=== PATIENT | female | born 1995 | race Caucasian/White ===

== ENCOUNTER 2017-02-05 17:27 | Emergency (ER) | payer MEDICAID ==
[~2017-02-05] VITALS: Ht 170.2 cm; Wt 81.6 kg
[~2017-02-05 17:27] MED LIST: RISP1TAB51 PO
[2017-02-05 17:32] VITALS: BP_SYST 128
--- NOTE | 2017-02-05 17:36 | NUR ---
Pt placed to ER bed 04 and to gown.
--- NOTE | 2017-02-05 17:40 | NUR ---
Patient brought in self for right knee pain. she states, "I shattered my knee 5 months ago.I was seated then fell on my right knee."Patient presents as Alert x 1, name only, engages to mortgage or loan underwriter with no eye contact, observed patient ambulatory, no deformity, swelling, discoloration noted. She is able to place her full weight on right knee, ambulates with no complaint of pain. Patient observed bending, putting on her shoes during assessment. No other complaints/injuries per patient, none noted.
--- NOTE | 2017-02-05 18:00 | NUR ---
Dr. Mclaughlin at bedside examining patient, updated on patient condition.
--- NOTE | 2017-02-05 18:05 | NUR ---
Observed patient laughing to self inappropriately, continues to engage with typewriter aligner using no eye contact. Patient acts bizarre, observed ambulating by bedside with no limp or signs of pain to right knee.
--- NOTE | 2017-02-05 18:21 | NUR ---
Patient off unit to radiology.
--- NOTE | 2017-02-05 18:28 | NUR ---
Patient returned from radiology, tolerated well. No signs of distress, vss noted.
[2017-02-05 18:40] VITALS: BP_SYST 128
--- NOTE | 2017-02-05 18:40 | NUR ---
Patient given written and verbal discharge instructions and verbalizes understanding. ER MD discussed with patient the results and treatment provided. Patient in stable condition. ID arm band removed. Rx of Motrin given. Patient educated on pain management and to follow up with PMD. Pain Scale 0/10. Opportunity for questions provided and answered. Patient transferred off unit by wheel chair for safety.
== END 2017-02-05 18:40 | disposition home or self-care (01) ==
LOC: SED 17:27
DX: G89.29 Other chronic pain (principal); M25.561 Pain in right knee; R03.0 Elevated blood-pressure reading, without diagnosis of hypertension
CPT/HCPCS: 73564; 81025; 99284